=== PATIENT | female | born 1970 | race Two or more races ===

== ENCOUNTER 2023-07-08 16:08 | Emergency (ER) | payer MEDICAID, OTHER ==
[~2023-07-08] VITALS: Ht 167.6 cm; Wt 54.4 kg
[2023-07-08 16:31] VITALS: BP 144/88; TEMP 98.1
[2023-07-08 16:49] VITALS: O2SAT 99
== END 2023-07-08 16:50 | disposition home or self-care (01) ==
LOC: ER 16:30
DX: Z48.02 Encounter for removal of sutures (principal); I12.9 Hypertensive chronic kidney disease with stage 1 through stage 4 chronic kidney disease, or unspecified chronic kidney disease; N18.4 Chronic kidney disease, stage 4 (severe)